=== PATIENT | male | born 1985 | race Caucasian/White ===

== ENCOUNTER 2019-07-04 06:51 | Emergency (ER) | payer OTHER ==
[~2019-07-04] VITALS: Ht 177.8 cm; Wt 83.9 kg
[~2019-07-04 06:51] MED LIST: AMOXICILLIN250 M1 PO; AMOXICILLIN500 M2 PO; CLEOCIN150 MG PO; FLOMAX0.4 MG PO; HYDROCODONE BIT1 T11 PO; NAPROSYN500 MG PO; NORCO 325 MG-51 TAB PO; NORCO 5-325 TA1 EACH PO; Peridex 473 ML473 ML PO
[2019-07-04] MEDS ORDERED: VALTREX1000 MG PO (07:30)
[2019-07-04] MEDS ORDERED: Motrin,Rufen800 MG PO (07:30)
== END 2019-07-04 07:40 | disposition home or self-care (01) ==
LOC: ED 06:51
DX: B02.9 Zoster without complications (principal); I10 Essential (primary) hypertension; Z87.442 Personal history of urinary calculi; Z87.891 Personal history of nicotine dependence

== ENCOUNTER 2023-11-07 13:04 | Emergency (ER) | payer SELFPAY ==
[~2023-11-07] VITALS: Ht 177.8 cm; Wt 88.5 kg
[~2023-11-07 13:04] MED LIST changes: +Motrin,Rufen800 MG PO; +VALTREX1000 MG PO
[2023-11-07] MEDS ORDERED: IBU-200200 MG PO (13:34)
[2023-11-07] MEDS ORDERED: Ketorolac Tromethamine 30 MG/ML VIAL IV ONE (14:10)
[2023-11-07] MEDS ORDERED: SODIUM CHLORIDE 0.9% 1,000 ML IV ONE (14:10)
[2023-11-07 14:22] LABS: BASO # 0.1 10*3/uL (0.0-0.1); BASO % 0.5 % (0.0-1.0); EOS # 0.1 10*3/uL (0.0-0.4); EOS % 0.9 % (1.0-4.0); HEMATOCRIT 48.5 % (42.0-52.0); LYMPH % 16.5 % (27.0-41.0); MEAN CELL VOLUME 91.3 fl (80.0-94.0); MEAN CORPUSCULAR HGB 30.1 pg (27.0-31.0); MONO # 0.5 10*3/uL (0.1-1.0); MONO % 4.2 % (3.0-9.0); NEUT # 9.6 10*3/uL (2.3-7.9); NEUT % 77.6 % (47.0-73.0); PLATELET COUNT AUTOMATED 299 10*3/uL (130-400); RED BLOOD COUNT 5.31 10*6/uL (4.50-5.90); WHITE BLOOD COUNT 12.3 10*3/uL (4.8-10.8)
[2023-11-07 14:41] LABS: ALKALINE PHOSPHATASE 96 U/L (46-116); BUN 9 mg/dl (9-23); CHLORIDE 105 mmol/L (98-107); POTASSIUM 4.1 mmol/L (3.4-5.1); SGPT/ALT 53 U/L (5-49); TOTAL PROTEIN 7.9 gm/dL (6.0-8.0)
[2023-11-07 16:05] LABS: BILIRUBIN Negative (Negative); BLOOD 3+ (Negative); CLARITY Clear (Clear); COLOR Yellow (Yellow); GLUCOSE Negative (Negative); KETONE Trace (Negative); LEUKO ESTERASE Trace (Negative); NITRITE Negative (Negative); PH 5.5 (4.5-8.0); UROBILINOGEN 0.2 E.U./dl (0.0-1.0)
[2023-11-07 16:13] LABS: BACTERIA 1+; FINE GRANULAR CAST 0-2; MUCOUS 2+; RBC 41-50 rbc/hpf (0-2)
[2023-11-07] MEDS ORDERED: FLOMAX0.4 MG PO (16:52)
[2023-11-07] MEDS ORDERED: MELOXICAM15 MG PO (16:52)
[2023-11-07] MEDS ORDERED: CIPRO500 MG PO (16:52)
== END 2023-11-07 17:26 | disposition home or self-care (01) ==
LOC: ED 13:04
PROVIDERS: Internal Medicine
DX: N20.0 Calculus of kidney (principal); N39.0 Urinary tract infection, site not specified; R11.2 Nausea with vomiting, unspecified; I10 Essential (primary) hypertension; F17.200 Nicotine dependence, unspecified, uncomplicated; Z98.890 Other specified postprocedural states